=== PATIENT | male | born 1955 | race Caucasian/White ===

== ENCOUNTER → 2019-10-24 08:35 | Outpatient (BNVA) | payer MEDICARE, OTHER, SELFPAY | PROVIDERS: Family Provider Nurse Practitioner Family; Visit Provider Nurse Practitioner Family | DX: E78.5 Hyperlipidemia, unspecified (principal); I10 Essential (primary) hypertension; Z79.899 Other long term (current) drug therapy | CPT/HCPCS: 80048; 80061 ==

== ENCOUNTER → 2020-09-08 07:42 | Outpatient (BNVA) | payer MEDICARE, OTHER, SELFPAY | PROVIDERS: Family Provider Nurse Practitioner Family; PCP Nurse Practitioner Family; Referring Provider Nurse Practitioner Family; Visit Provider Urology | DX: R97.20 Elevated prostate specific antigen [PSA] (principal); Z80.42 Family history of malignant neoplasm of prostate | CPT/HCPCS: 84153 ==

== ENCOUNTER → 2020-09-21 10:57 | Outpatient (BNVA) | payer MEDICARE, OTHER, SELFPAY | PROVIDERS: Family Provider Nurse Practitioner Family; PCP Nurse Practitioner Family; Visit Provider Nurse Practitioner Family | DX: W57.XXXA Bitten or stung by nonvenomous insect and other nonvenomous arthropods, initial encounter (principal); M25.50 Pain in unspecified joint | CPT/HCPCS: 86618; 86666; 86757 ==

== ENCOUNTER 2020-12-16 14:46 | Outpatient (CLI) | payer MEDICARE, OTHER, SELFPAY | END 2020-12-16 14:47 | disposition home or self-care (01) | LOC: LAB 14:51 | PROVIDERS: PCP Nurse Practitioner Family; Visit Provider Urology | DX: N42.9 Disorder of prostate, unspecified (principal) | CPT/HCPCS: 87086 ==

== ENCOUNTER → 2021-01-04 10:34 | Outpatient (BNVA) | payer MEDICARE, OTHER, SELFPAY | PROVIDERS: PCP Nurse Practitioner Family; Visit Provider Nurse Practitioner Family | DX: Z12.5 Encounter for screening for malignant neoplasm of prostate (principal); M10.9 Gout, unspecified; E78.5 Hyperlipidemia, unspecified; Z80.42 Family history of malignant neoplasm of prostate | CPT/HCPCS: 80053; 80061; 84550; G0103 ==

== ENCOUNTER 2021-05-23 11:37 | Outpatient (CLI) | payer MEDICARE, OTHER, SELFPAY ==
--- NOTE | 2021-05-23 10:34 | ECG_ITS ---
[facility] Test Date: 2021-05-23 Pat Name: Vijay Flores Department: Room: Gender: Male Assurance Analyst: Altagracia : 1955 Requested By: DOCTOR NOT ON FILE Order Number: [id number] Kayli MD: Jeni Marie M.D. Measurements Intervals [place] Rate: 67 P: 51 NC: 177 QRS: 52 QRSD: 85 T: 39 QT: 393 QTc: 418 Interpretive Statements SINUS RHYTHM No previous ECG available for comparison Electronically Signed On 05-26-2021 19:33:48 [employer] by Jeni Marie M.D. [email or web address]
--- NOTE | 2021-05-23 11:53 | XR_ITS ---
NOTE: Report was unsigned for reason: Ordering provider was edited. Original Signature date and time was: 05/23/21 @ 1222 WS: [id number] Exam: XR chest 2V* [id number] Date/Time of Exam: 05/23/2021 12:07 PM Reason For Exam: PROSTATE CANCER Findings: The lungs are clear and fully expanded. Costophrenic angles are sharp. No infiltrates. Bronchovascular relief appears normal. Cardiac silhouette is unremarkable. Bony elements are intact. [facility] XR/XR chest 2V* [id number] IMPRESSION: Unremarkable chest radiograph.
[2021-05-23 12:38] LABS: Basophils % 0.7 %; Eosinophils # 0.1 10^3/uL (0.0-0.8); Eosinophils % 1.3 %; Hematocrit 45.5 % (42.0-52.0); Hemoglobin 15.2 g/dL (11.7-16.6); Lymphocytes # 1.7 10^3/uL (0.8-4.8); Lymphocytes % 31.4 %; Mean Corpuscular HGB Conc 33.4 g/dL (30.0-36.0); Mean Corpuscular Hemoglobin 32.9 pg (28.0-34.0); Mean Corpuscular Volume 98.5 fl (80-94); Mean Platelet Volume 8.8 fL (7.4-10.4); Monocytes # 0.4 10^3/uL (0.2-0.9); Monocytes % 7.6 %; Neutrophils # 3.19 10^3/uL (1.8-7.7); Neutrophils % 58.8 %; Nucleated Red Blood Cells % 0 %; Platelet Count 218 10^3/cmm (130-400); Red Blood Count 4.62 10^6/uL (4.1-5.3); White Blood Count 5.4 10^3/uL (4.0-10.0)
[2021-05-23 12:39] LABS: Add Urine Microscopic? NO; Charge for UA Resulting for Rev
[2021-05-23 12:48] LABS: Bilirubin Urine Neg (Negative); Blood Urine Neg (Negative); Glucose Urine UA Norm (Normal); Ketones Urine Negative (Negative); Leukocyte Esterase Urine Negative (Negative); Nitrate Urine Negative (Negative); Protein Urine Neg (Negative); Urine Appearance Clear (CLEAR); Urine Color Yellow (Yellow); Urobilinogen Urine Norm (Negative); pH Urine 6 (5-7)
[2021-05-23 12:57] LABS: Alanine Aminotransferase 34 U/L (0-41); Albumin Level 4.3 g/dL (3.5-5.2); Alkaline Phosphatase 62 IU/L (40-130); Anion Gap 16.1 (5-19); Aspartate Amino Transferase 21 U/L (0-40); Blood Urea Nitrogen 14 mg/dL (8-23); Calcium 9.1 mg/dL (8.5-10.5); Carbon Dioxide 27 mmol/L (22-29); Chloride 103 mmol/L (98-107); Globulin 2.3 g/dL (1.3-4.6); Glomerular Filtration Rate 112.5 mL/min (90-130); Glucose 94 mg/dL (65-115); Osmolality Calculated 294 mOsm/kg (285-295); Potassium 4.1 mmol/L (3.5-5.1); Sodium 142 mmol/L (136-145); Total Bilirubin 0.4 mg/dL (0.15-1.2); Total Protein 6.6 g/dL (6.6-8.7)
[2021-05-23 13:02] LABS: INR 0.92 (0.8-1.2)
[2021-05-23 13:48] LABS: Hepatitis A Antibody IgM Non-Reactive (Nonreactive); Hepatitis B Core IgM Non-Reactive (Nonreactive); Hepatitis B Surface Antigen Non-Reactive (Nonreactive); Hepatitis C Virus Antibody Non-Reactive (Nonreactive)
== END 2021-05-23 11:38 | disposition home or self-care (01) ==
LOC: RAD 11:47 → RT 11:48
PROVIDERS: PCP Nurse Practitioner Family; Visit Provider Nurse Practitioner Acute Care
DX: C61 Malignant neoplasm of prostate (principal)
CPT/HCPCS: 71046; 80053; 80074; 81003; 85025; 85610; 85730; 86850; 86900; 87086; 93005

== ENCOUNTER → 2021-05-27 09:37 | Outpatient (BNVA) | payer MEDICARE, OTHER, SELFPAY | PROVIDERS: PCP Nurse Practitioner Family; Visit Provider Nurse Practitioner Family | DX: E78.5 Hyperlipidemia, unspecified (principal) | CPT/HCPCS: 80061 ==

== ENCOUNTER 2021-11-22 15:05 | Outpatient (CLI) | payer MEDICARE, OTHER, SELFPAY ==
[2021-11-22 16:56] LABS: Prostate Specific Antigen 0.027 ng/mL (0-4)
== END 2021-11-22 15:06 | disposition home or self-care (01) ==
PROVIDERS: PCP Nurse Practitioner Family; Visit Provider Urology
DX: C61 Malignant neoplasm of prostate (principal)
CPT/HCPCS: 36415; 84153

== ENCOUNTER 2021-12-26 08:50 | Outpatient (CLI) | payer MEDICARE, OTHER, SELFPAY ==
[2021-12-26 09:36] LABS: Basophils % 0.7 %; Eosinophils # 0.1 10^3/uL (0.0-0.8); Eosinophils % 2.1 %; Hematocrit 44.9 % (42.0-52.0); Hemoglobin 14.7 g/dL (11.7-16.6); Lymphocytes # 1.2 10^3/uL (0.8-4.8); Lymphocytes % 28.3 %; Mean Corpuscular HGB Conc 32.7 g/dL (30.0-36.0); Mean Corpuscular Hemoglobin 31.7 pg (28.0-34.0); Mean Corpuscular Volume 96.8 fl (80-94); Mean Platelet Volume 9.4 fL (7.4-10.4); Monocytes # 0.5 10^3/uL (0.2-0.9); Monocytes % 12.6 %; Neutrophils # 2.35 10^3/uL (1.8-7.7); Neutrophils % 55.8 %; Nucleated Red Blood Cells % 0 %; Platelet Count 197 10^3/cmm (130-400); Red Blood Count 4.64 10^6/uL (4.1-5.3); Red Cell Distribution Width 12.2 % (12.1-15.1); White Blood Count 4.2 10^3/uL (4.0-10.0)
[2021-12-26 10:10] LABS: Alanine Aminotransferase 26 U/L (0-41); Albumin Level 4.3 g/dL (3.5-5.2); Alkaline Phosphatase 80 U/L (40-130); Anion Gap 13.5 (5-19); Aspartate Amino Transferase 21 U/L (0-40); Blood Urea Nitrogen 11 mg/dL (8-23); Calcium 9.3 mg/dL (8.5-10.5); Carbon Dioxide 29 mmol/L (22-29); Chloride 105 mmol/L (98-107); Globulin 2.2 g/dL (1.3-4.6); Glomerular Filtration Rate 96.1 mL/min (90-130); Glucose 91 mg/dL (65-115); Osmolality Calculated 295 mOsm/kg (285-295); Potassium 4.5 mmol/L (3.5-5.1); Sodium 143 mmol/L (136-145); Total Bilirubin 0.4 mg/dL (0.15-1.2); Total Protein 6.5 g/dL (6.6-8.7)
[2021-12-28 21:22] LABS: Glucose-6-Phosphate Dehydrogen 14.3 U/g Hgb (7.0-20.5)
== END 2021-12-26 08:51 | disposition home or self-care (01) ==
PROVIDERS: PCP Nurse Practitioner Family; Visit Provider Dermatology
DX: K90.0 Celiac disease (principal); L13.0 Dermatitis herpetiformis; Z79.899 Other long term (current) drug therapy
CPT/HCPCS: 36415; 80053; 82955; 85025

== ENCOUNTER → 2022-01-11 09:33 | Outpatient (BNVA) | payer MEDICARE, OTHER, SELFPAY | PROVIDERS: PCP Nurse Practitioner Family; Visit Provider Dermatology | DX: L13.0 Dermatitis herpetiformis (principal); Z79.899 Other long term (current) drug therapy; E78.5 Hyperlipidemia, unspecified | CPT/HCPCS: 80061; 85025 ==

== ENCOUNTER → 2022-01-25 09:05 | Outpatient (BNVA) | payer MEDICARE, OTHER, SELFPAY | PROVIDERS: PCP Nurse Practitioner Family; Visit Provider Dermatology | DX: L13.0 Dermatitis herpetiformis (principal); Z79.899 Other long term (current) drug therapy | CPT/HCPCS: 85025 ==

== ENCOUNTER 2022-02-24 16:11 | Outpatient (CLI) | payer MEDICARE, OTHER, SELFPAY ==
[2022-02-24 16:40] LABS: Basophils % 0.5 %; Eosinophils # 0.1 10^3/uL (0.0-0.8); Eosinophils % 1.7 %; Hematocrit 41.3 % (42.0-52.0); Hemoglobin 13.7 g/dL (11.7-16.6); Lymphocytes % 30.9 %; Mean Corpuscular HGB Conc 33.2 g/dL (30.0-36.0); Mean Corpuscular Hemoglobin 33.9 pg (28.0-34.0); Mean Corpuscular Volume 102.2 fl (80-94); Mean Platelet Volume 9.1 fL (7.4-10.4); Monocytes # 0.5 10^3/uL (0.2-0.9); Monocytes % 7.4 %; Neutrophils # 3.83 10^3/uL (1.8-7.7); Neutrophils % 59.2 %; Nucleated Red Blood Cells % 0 %; Platelet Count 201 10^3/cmm (130-400); Red Blood Count 4.04 10^6/uL (4.1-5.3); Red Cell Distribution Width 14.3 % (12.1-15.1); White Blood Count 6.5 10^3/uL (4.0-10.0)
== END 2022-02-24 16:12 | disposition home or self-care (01) ==
LOC: LAB 16:25
PROVIDERS: PCP Nurse Practitioner Family; Visit Provider Dermatology
DX: L13.0 Dermatitis herpetiformis (principal); Z79.899 Other long term (current) drug therapy
CPT/HCPCS: 36415; 85025

== ENCOUNTER 2022-03-07 17:14 | Outpatient (CLI) | payer MEDICARE, OTHER, SELFPAY ==
[2022-03-07 17:31] LABS: Basophils % 0.6 %; Eosinophils # 0.1 10^3/uL (0.0-0.8); Eosinophils % 1.1 %; Hematocrit 39.1 % (42.0-52.0); Hemoglobin 13.1 g/dL (11.7-16.6); Lymphocytes # 2.3 10^3/uL (0.8-4.8); Lymphocytes % 31.8 %; Mean Corpuscular HGB Conc 33.5 g/dL (30.0-36.0); Mean Corpuscular Hemoglobin 34.3 pg (28.0-34.0); Mean Corpuscular Volume 102.4 fl (80-94); Mean Platelet Volume 9.3 fL (7.4-10.4); Monocytes # 0.7 10^3/uL (0.2-0.9); Monocytes % 9.5 %; Neutrophils # 4.06 10^3/uL (1.8-7.7); Neutrophils % 56.6 %; Nucleated Red Blood Cells % 0 %; Platelet Count 195 10^3/cmm (130-400); Red Blood Count 3.82 10^6/uL (4.1-5.3); Red Cell Distribution Width 13.2 % (12.1-15.1); White Blood Count 7.2 10^3/uL (4.0-10.0)
== END 2022-03-07 17:15 | disposition home or self-care (01) ==
LOC: LAB 17:16
PROVIDERS: PCP Nurse Practitioner Family; Visit Provider Dermatology
DX: L13.0 Dermatitis herpetiformis (principal); Z79.899 Other long term (current) drug therapy
CPT/HCPCS: 85025

== ENCOUNTER 2022-03-25 11:06 | Outpatient (CLI) | payer MEDICARE, OTHER, SELFPAY ==
[2022-03-25 11:24] LABS: Basophils % 0.7 %; Eosinophils # 0.1 10^3/uL (0.0-0.8); Eosinophils % 1.8 %; Hematocrit 42.2 % (42.0-52.0); Hemoglobin 13.8 g/dL (11.7-16.6); Lymphocytes # 1.5 10^3/uL (0.8-4.8); Lymphocytes % 26.8 %; Mean Corpuscular HGB Conc 32.7 g/dL (30.0-36.0); Mean Corpuscular Hemoglobin 33.7 pg (28.0-34.0); Mean Corpuscular Volume 103.2 fl (80-94); Monocytes # 0.4 10^3/uL (0.2-0.9); Monocytes % 7.7 %; Neutrophils % 62.6 %; Nucleated Red Blood Cells % 0 %; Platelet Count 208 10^3/cmm (130-400); Red Blood Count 4.09 10^6/uL (4.1-5.3); Red Cell Distribution Width 12.8 % (12.1-15.1); White Blood Count 5.6 10^3/uL (4.0-10.0)
== END 2022-03-25 11:07 | disposition home or self-care (01) ==
LOC: LAB 11:07
PROVIDERS: PCP Nurse Practitioner Family; Visit Provider Dermatology
DX: Z79.899 Other long term (current) drug therapy (principal)
CPT/HCPCS: 36415; 85025

== ENCOUNTER 2022-04-10 08:43 | Outpatient (CLI) | payer MEDICARE, OTHER, SELFPAY ==
[2022-04-10 10:17] LABS: Prostate Specific Antigen 0.056 ng/mL (0-4)
== END 2022-04-10 08:44 | disposition home or self-care (01) ==
PROVIDERS: PCP Nurse Practitioner Family; Visit Provider Urology
DX: R97.20 Elevated prostate specific antigen [PSA] (principal)
CPT/HCPCS: 84153

== ENCOUNTER 2022-04-24 10:20 | Outpatient (CLI) | payer MEDICARE, OTHER, SELFPAY ==
[2022-04-24 10:44] LABS: Basophils % 0.8 %; Eosinophils # 0.1 10^3/uL (0.0-0.8); Eosinophils % 1.9 %; Hematocrit 42.6 % (42.0-52.0); Hemoglobin 13.7 g/dL (11.7-16.6); Lymphocytes # 1.7 10^3/uL (0.8-4.8); Lymphocytes % 32.6 %; Mean Corpuscular HGB Conc 32.2 g/dL (30.0-36.0); Mean Corpuscular Hemoglobin 32.9 pg (28.0-34.0); Mean Corpuscular Volume 102.4 fl (80-94); Mean Platelet Volume 9.5 fL (7.4-10.4); Monocytes # 0.6 10^3/uL (0.2-0.9); Monocytes % 10.6 %; Neutrophils # 2.82 10^3/uL (1.8-7.7); Neutrophils % 53.5 %; Nucleated Red Blood Cells % 0 %; Platelet Count 193 10^3/cmm (130-400); Red Blood Count 4.16 10^6/uL (4.1-5.3); Red Cell Distribution Width 13.4 % (12.1-15.1); White Blood Count 5.3 10^3/uL (4.0-10.0)
== END 2022-04-24 10:21 | disposition home or self-care (01) ==
LOC: LAB 10:22
PROVIDERS: PCP Nurse Practitioner Family; Visit Provider Dermatology
DX: L13.0 Dermatitis herpetiformis (principal); Z79.899 Other long term (current) drug therapy
CPT/HCPCS: 36415; 85025

== ENCOUNTER → 2022-06-13 15:33 | Outpatient (BNVA) | payer MEDICARE, OTHER, SELFPAY | PROVIDERS: PCP Nurse Practitioner Family; Visit Provider Nurse Practitioner Family | DX: I10 Essential (primary) hypertension (principal); E78.5 Hyperlipidemia, unspecified | CPT/HCPCS: 80053; 80061 ==

== ENCOUNTER 2022-10-09 15:05 | Outpatient (CLI) | payer MEDICARE, OTHER, SELFPAY ==
[2022-10-09 15:50] LABS: Basophils % 0.5 %; Eosinophils # 0.1 10^3/uL (0.0-0.8); Eosinophils % 1.9 %; Hematocrit 44.9 % (42.0-52.0); Hemoglobin 14.7 g/dL (11.7-16.6); Lymphocytes # 1.7 10^3/uL (0.8-4.8); Lymphocytes % 29.9 %; Mean Corpuscular HGB Conc 32.7 g/dL (30.0-36.0); Mean Corpuscular Hemoglobin 32.2 pg (28.0-34.0); Mean Corpuscular Volume 98.2 fl (80-94); Monocytes # 0.5 10^3/uL (0.2-0.9); Monocytes % 9.1 %; Neutrophils # 3.31 10^3/uL (1.8-7.7); Neutrophils % 58.2 %; Nucleated Red Blood Cells % 0 %; Platelet Count 204 10^3/cmm (130-400); Red Blood Count 4.57 10^6/uL (4.1-5.3); Red Cell Distribution Width 14.4 % (12.1-15.1); White Blood Count 5.7 10^3/uL (4.0-10.0)
== END 2022-10-09 15:06 | disposition home or self-care (01) ==
LOC: LAB 15:17
PROVIDERS: PCP Nurse Practitioner Family; Visit Provider Dermatology
DX: L13.0 Dermatitis herpetiformis (principal); Z79.899 Other long term (current) drug therapy; L82.0 Inflamed seborrheic keratosis
CPT/HCPCS: 17110; 36415; 85025; 99214

== ENCOUNTER 2023-06-07 11:03 | Outpatient (CLI) | payer MEDICARE, OTHER, SELFPAY ==
[2023-06-07 11:53] LABS: Basophils % 0.5 %; Eosinophils # 0.1 10^3/uL (0.0-0.8); Eosinophils % 1.5 %; Hematocrit 36.1 % (37-53); Lymphocytes # 0.8 10^3/uL (0.8-4.8); Lymphocytes % 20.8 %; Mean Corpuscular HGB Conc 31.6 g/dL (30-55); Mean Corpuscular Hemoglobin 33.2 pg (27-33); Mean Corpuscular Volume 105.2 fl (82-101); Mean Platelet Volume 9.3 fL (7.4-10.4); Monocytes # 0.4 10^3/uL (0.2-0.9); Monocytes % 10.8 %; Neutrophils # 2.52 10^3/uL (1.8-7.7); Neutrophils % 64.9 %; Nucleated Red Blood Cells % 0.5 %; Platelet Count 179 10^3/cmm (157-399); Red Blood Count 3.43 10^6/uL (3.85-5.65); Red Cell Distribution Width 14.8 % (12.1-15.1); White Blood Count 3.89 10^3/uL (3.29-11.43)
== END 2023-06-07 11:04 | disposition home or self-care (01) ==
LOC: LAB 11:06
PROVIDERS: PCP Nurse Practitioner Family; Visit Provider Dermatology
DX: L13.0 Dermatitis herpetiformis (principal); Z79.899 Other long term (current) drug therapy; L82.0 Inflamed seborrheic keratosis; L57.8 Other skin changes due to chronic exposure to nonionizing radiation; D22.62 Melanocytic nevi of left upper limb, including shoulder
CPT/HCPCS: 17110; 36415; 85025; 99213

== ENCOUNTER → 2023-11-22 09:55 | Outpatient (BNVA) | payer MEDICARE, OTHER, SELFPAY | PROVIDERS: PCP Nurse Practitioner Family; Visit Provider Nurse Practitioner Family | DX: I10 Essential (primary) hypertension (principal); Z79.899 Other long term (current) drug therapy | CPT/HCPCS: 80053; 80061; 85025 ==

== ENCOUNTER → 2023-11-28 11:03 | Outpatient (BNVA) | payer MEDICARE, OTHER, SELFPAY | PROVIDERS: PCP Nurse Practitioner Family; Visit Provider Nurse Practitioner Family | DX: T14.8XXA Other injury of unspecified body region, initial encounter (principal); W57.XXXA Bitten or stung by nonvenomous insect and other nonvenomous arthropods, initial encounter | CPT/HCPCS: 86618; 86666; 86757 ==

== ENCOUNTER 2023-11-30 08:48 | Outpatient (CLI) | payer MEDICARE, OTHER, SELFPAY ==
--- NOTE | 2023-11-30 09:00 | XR_ITS ---
WS: [id number] XR sinus min 3V* [id number] REASON FOR EXAM: Z87.81 - Personal history of (healed) traumatic fracture FINDINGS: The bony structure of the paranasal sinuses are intact. The sinuses are clear and well aerated. No mucosal thickening or mass. Hypoplasia of the ethmoid sinuses. XR/XR sinus min 3V* [id number] IMPRESSION: Normal paranasal sinuses.
== END 2023-11-30 08:49 | disposition home or self-care (01) ==
LOC: RAD 08:51
PROVIDERS: PCP Nurse Practitioner Family; Visit Provider Nurse Practitioner Family
DX: Z87.81 Personal history of (healed) traumatic fracture (principal); J32.2 Chronic ethmoidal sinusitis
CPT/HCPCS: 70220

== ENCOUNTER → 2023-12-06 08:32 | Outpatient (BNVA) | payer MEDICARE, OTHER, SELFPAY | PROVIDERS: PCP Nurse Practitioner Family; Visit Provider Nurse Practitioner Family | DX: L13.0 Dermatitis herpetiformis (principal); Z79.899 Other long term (current) drug therapy; D22.62 Melanocytic nevi of left upper limb, including shoulder; S20.461A Insect bite (nonvenomous) of right back wall of thorax, initial encounter; X58.XXXA Exposure to other specified factors, initial encounter; L82.0 Inflamed seborrheic keratosis; L57.0 Actinic keratosis; L57.8 Other skin changes due to chronic exposure to nonionizing radiation | CPT/HCPCS: 17000; 17110; 99214 ==

== ENCOUNTER → 2024-03-27 09:23 | Outpatient (BNVA) | payer MEDICARE, OTHER, SELFPAY | PROVIDERS: PCP Nurse Practitioner Family; Visit Provider Nurse Practitioner Family | DX: R53.83 Other fatigue (principal); Z85.46 Personal history of malignant neoplasm of prostate; W57.XXXA Bitten or stung by nonvenomous insect and other nonvenomous arthropods, initial encounter | CPT/HCPCS: 80053; 84439; 84443; 85025; 86618; 86666; 86757 ==

== ENCOUNTER → 2024-03-28 10:54 | Outpatient (BNVA) | payer MEDICARE, OTHER, SELFPAY | PROVIDERS: PCP Nurse Practitioner Family; Visit Provider Nurse Practitioner Family | DX: R53.82 Chronic fatigue, unspecified (principal); G89.29 Other chronic pain; W57.XXXA Bitten or stung by nonvenomous insect and other nonvenomous arthropods, initial encounter | CPT/HCPCS: 86003; 86008 ==

== ENCOUNTER 2024-05-05 09:14 | Outpatient (CLI) | payer MEDICARE, OTHER, SELFPAY ==
--- NOTE | 2024-05-05 09:26 | XR_ITS ---
WS: [id number] Right hip, AP and frog-leg views 05/05/2024 Clinical Data: M25.559 - Pain in unspecified hip Comparison: None. Findings: No fractures or dislocations are seen. The right hip shows no erosion, sclerosis, narrowing or fragme ntation of the right femoral head. There are pelvic sutures in the low midline and adjacent to the ri ght pubic ramus.. The soft tissues are not remarkable. The adjacent pelvis is normal. XR/XR hip RT 2-3V wo/w pel* [id number] Impression: Negative right hip. Tonnis classification: grade 0: normal radiographs
== END 2024-05-05 09:15 | disposition home or self-care (01) ==
PROVIDERS: PCP Nurse Practitioner Family; Visit Provider Nurse Practitioner Family
DX: M25.559 Pain in unspecified hip (principal)
CPT/HCPCS: 73502

== ENCOUNTER 2024-05-06 14:50 | Outpatient (CLI) | payer MEDICARE, OTHER, SELFPAY ==
--- NOTE | 2024-05-06 15:15 | MRR_ITS ---
PROCEDURE INFORMATION: Exam: MR Right Lower Extremity Joint Without Contrast; Hip Exam date and time: 05/06/2024 3:06 PM Age: 68 years old Clinical indication: Right; Patient HX: RT hip pain x 1 month, radiates down front and back of leg. Injured walking dog, dog pulled leash and PT twisted and fell; Additional info: M25.551 - pain in right hip TECHNIQUE: Imaging protocol: Magnetic resonance imaging of the right lower extremity joint without contrast. Exam focused on the hip. COMPARISON: CR XR hip RT 2-3V wo/w pel* [id number] 05/05/2024 9:38 AM FINDINGS: Bones/joints: [id number]-[id number] disc space narrowing and endplate edema at L4-L5 and to a lesser extent L5-S1 level. Mild edema at the right sacral ala. Labrum: Mild degenerative spurring of the bilateral acetabular margins with mild superimposed cystic change/edema of the left acetabular rim with juxta labral cyst suggestive of labral tear. TENDONS: Tendons of iliopsoas group: Unremarkable. No evidence of tear. Tendons of medial compartment of thigh: Unremarkable. No evidence of tear. Tendons of lateral rotators of hip: Unremarkable. No evidence of tear. Tendons of gluteal group: Unremarkable. No evidence of tear. Soft tissues: Small fat containing left inguinal hernia Bowel: Scattered sigmoid diverticuli. MR/MR hip RT wo con* [id number] IMPRESSION: 1. Mild edema of the right sacral ala suggestive of osseous stress change . 2. No right hip fracture , AVN or osseous stress change. 3. Mild degenerative bilateral hip arthrosis with probable superimposed left labral tear with juxta labral cyst. 4. Moderate lower lumbar degenerative spondylosis associated with reactive endplate edema.
== END 2024-05-06 14:51 | disposition home or self-care (01) ==
LOC: RAD 14:52
PROVIDERS: PCP Nurse Practitioner Family; Visit Provider Nurse Practitioner Family
DX: M47.896 Other spondylosis, lumbar region (principal); R93.7 Abnormal findings on diagnostic imaging of other parts of musculoskeletal system; M25.551 Pain in right hip; G89.29 Other chronic pain
CPT/HCPCS: 73721

== ENCOUNTER → 2024-08-07 14:09 | Outpatient (BNVA) | payer MEDICARE, OTHER, SELFPAY | PROVIDERS: PCP Nurse Practitioner Family; Visit Provider Dermatology | DX: L13.0 Dermatitis herpetiformis (principal); L81.4 Other melanin hyperpigmentation; D18.01 Hemangioma of skin and subcutaneous tissue; Z79.899 Other long term (current) drug therapy; L57.0 Actinic keratosis | CPT/HCPCS: 17000; 99213 ==

== ENCOUNTER → 2025-03-23 11:29 | Outpatient (BNVA) | payer MEDICARE, OTHER, SELFPAY | PROVIDERS: PCP Nurse Practitioner Family; Visit Provider Dermatology | DX: L13.0 Dermatitis herpetiformis (principal); L81.4 Other melanin hyperpigmentation; D18.01 Hemangioma of skin and subcutaneous tissue; L73.9 Follicular disorder, unspecified; Z79.899 Other long term (current) drug therapy; L82.0 Inflamed seborrheic keratosis; R20.8 Other disturbances of skin sensation; L53.8 Other specified erythematous conditions; L29.89 Other pruritus | CPT/HCPCS: 17110; 99213 ==